=== PATIENT | male | born 1965 | race Caucasian/White ===

== ENCOUNTER → 2019-08-14 | Outpatient (CLI) | payer BC ==
--- NOTE | 2019-08-14 17:40 | REP ---
Clinical: Left foot/heel pain. Technique: AP, lateral, bilateral oblique views of the left foot. Findings: Osseous structures, joint spaces, and surrounding soft tissues are essentially normal for age. No significant calcaneal heal spur. No soft tissue calcifications or abnormalities. No acute fracture or dislocation. Impression: Normal age-appropriate left foot radiographs. Electronically Signed by Viraj Silver MD 08/14/2019 05:32 P
--- NOTE | 2019-08-14 17:41 | REP ---
Clinical: Left heel pain. Technique: Axial and lateral views of the left calcaneus. Findings: Calcaneus and associated joint spaces are intact and normal. A thin calcaneal spur. Achilles insertion appears normal. Surrounding soft tissues are unremarkable. No soft tissue calcifications. Impression: Normal left calcaneus radiographs. Electronically Signed by Viraj Silver MD 08/14/2019 05:33 P
== END ==
LOC: M WUC 17:18
PROVIDERS: ATTEND Physician Assistant
DX: M79.672 Pain in left foot (principal)